=== PATIENT | female | born 1975 | race Caucasian/White ===

== ENCOUNTER → 2017-08-16 12:35 | Outpatient (CLI) | payer OTHER, SELFPAY ==
--- NOTE | 2017-08-16 | DI.MG.S_ITS ---
BILATERAL DIGITAL DIAGNOSTIC MAMMOGRAM 3D/2D SHORT-TERM FOLLOW-UP: 08/16/2017 CLINICAL: Short term follow up right breast. Due bilaterally. Comparison is made to exams dated: 08/10/2016 mammogram, 03/01/2016 mammogram, and 02/03/2016 mammogram - [facility]. There are scattered fibroglandular elements in both breasts. There is a 0.4 cm oval equal density asymmetry with an indistinct margin in the right breast at 11 o'clock middle depth. This is not significantly changed. No other significant masses, calcifications, or other findings are seen in either breast. IMPRESSION: INCOMPLETE: NEEDS ADDITIONAL IMAGING EVALUATION The 0.4 cm oval equal density asymmetry in the right breast is indeterminate. An ultrasound is recommended. This exam was interpreted at Station ID: [id number]. NOTE: For mammograms, a report in lay terms will be sent to the patient. Approximately 15% of breast malignancies will not be visualized mammographically. In the management of a palpable breast mass, a negative mammogram must not discourage biopsy of a clinically suspicious lesion. Electronically Signed By: Felipe arreola/jono:08/16/2017 13:55:50 letter sent: Need Ultrasound ACR BI-RADS Category 0: Incomplete [id number]
--- NOTE | 2017-08-16 | DI.US.S_ITS ---
ULTRASOUND OF RIGHT BREAST: 08/16/2017 CLINICAL: 6 month follow-up of cysts. Comparison is made to exams dated: 08/16/2017 mammogram, 08/10/2016 ultrasound, and 08/10/2016 mammogram - [facility]. Color flow and real-time ultrasound of the right breast were performed on the areas of interest. There is a stable benign 0.4 cm x 0.3 cm x 0.6 cm oval cyst with debris with a smooth internal wall in the right breast at 10 o'clock middle depth. This oval cyst with debris is hypoechoic with posterior acoustic enhancement. Color flow imaging demonstrates that there is no vascularity present. IMPRESSION: BENIGN There is no sonographic evidence of malignancy. The stable 0.4 cm x 0.3 cm x 0.6 cm oval cyst with debris in the right breast is consistent with a complex cyst and is benign. Return to annual mammogram screening schedule is recommended. This exam was interpreted at Station ID: [id number]. Electronically Signed By: Felipe arreola/jono:08/16/2017 15:50:31 letter sent: Normal Exam Ultrasound BI-RADS: 2 Benign
== END ==
PROVIDERS: Visit Provider Nurse Practitioner Adult Health
DX: R92.8 Other abnormal and inconclusive findings on diagnostic imaging of breast (principal); N63.10 Unspecified lump in the right breast, unspecified quadrant
CPT/HCPCS: 76642; 77066; G0279

== ENCOUNTER 2017-09-18 17:19 | Emergency (ER) | payer OTHER, SELFPAY ==
[2017-09-18 18:08] VITALS: BP 135/85; PULSE 84; RESP 18; TEMP 37.1; O2SAT 100; BMI 25.6
[2017-09-18 20:12] LABS: RBC Urine None Seen (0-5/HPF)
[2017-09-18 20:59] LABS: Bacteria Urine Many (>30); Culture Indicated Urine Specimen Cultured; Squamous Epithelial Cell Urine 0-1 /HPF; WBC Urine >100/HPF (0-5/HPF)
--- NOTE | 2017-09-18 21:10 | DI.CT.S_ITS ---
PROCEDURE: CT KIDNEY URETER BLADDER (KUB) INDICATIONS: left flank pain for 3 days TECHNIQUE: Noncontrast 5 mm thick sections acquired from the diaphragms to the symphysis. 5 mm thick coronal and sagittal reformats were then performed. For radiation dose reduction, the following was used: automated exposure control, adjustment of mA and/or kV according to patient size. COMPARISON: None. FINDINGS: Image quality: Excellent. Lung bases: There is minimal dependent atelectasis. Heart size is normal. Urinary system: There is mild asymmetric enlargement of the left kidney with mild perinephric stranding bilaterally, left. The right. There is slight dilatation of the left renal collecting system with mild urothelial thickening without definite hydronephrosis. No renal or ureteral stone identified. No perinephric fluid collections. There is asymmetric fat stranding within the left perinephric space. The urinary bladder is normal wall thickness. No bladder stones. Other solid organs: Liver is normal in size. Gallbladder appears within normal limits without calcified gallstones. Pancreas is normal in contours. Spleen is normal in size. No adrenal nodules. Peritoneum and bowel: Unenhanced bowel loops demonstrate normal wall thickness and caliber. The appendix is normal in appearance. There is mild diverticulosis without acute diverticulitis. No free fluid or air. Nodes and vessels: No retroperitoneal or mesenteric adenopathy by size criteria. Aorta and inferior vena cava are normal in caliber. Abdominal wall: No ventral hernias. Pelvis: No free pelvic fluid. No inguinal hernias or adenopathy. Bones: No suspicious bony lesions. No vertebral body compression fractures. IMPRESSION: 1. Asymmetric edema and perinephric stranding around the left kidney with mild fullness of the renal collecting system and mild urothelial thickening. The findings are suggestive of pyelonephritis, with evaluation limited by the absence of intravenous contrast. No perinephric fluid collections to suggest an abscess. No obstructive uropathy. 2. Mild nonspecific right stranding also noted. Right pyelonephritis is not excluded. 3. No evidence of acute appendicitis. 4. Diverticulosis without acute diverticulitis. Dictated by: Felipe Starks M.D. on 09/18/2017 at 21:54 Approved by: Felipe Starks M.D. on 09/18/2017 at 21:59
[2017-09-18 21:43] LABS: Add Manual Diff / Slide Review NO; Basophils Percent Auto 0.2 % (0-2); Eosinophils Percent Auto 0.5 % (2-4); Hematocrit 37.4 % (36-46); Hemoglobin 12.5 g/dL (12.0-16.0); Lymphocytes Percent Auto 7.8 % (25-40); Mean Corpuscular HGB Conc 33.3 % (30-36); Mean Corpuscular Volume 93.2 fL (80-100); Monocytes Percent Auto 5.9 % (3-14); Neutrophils Absolute Auto 20000 /uL (3000-5900); Neutrophils Percent Auto 85.6 % (50-75); Platelet Count 333 X10^3/uL (150-400); Red Blood Cell Count 4.02 X10^6/uL (4.0-5.2); Red Cell Distribution Width 13.4 % (11.6-14.8); White Blood Cell Count 23.3 X10^3/uL (4.5-11.0)
[2017-09-18 21:55] LABS: Alanine Aminotransferase 58 IU/L (9-52); Albumin 3.9 g/dL (3.5-5.0); Alkaline Phosphatase 336 U/L (38-126); Aspartate Aminotransferase 30 IU/L (14-36); BUN Creatinine Ratio 14.4 (6-22); Blood Urea Nitrogen 23 mg/dL (7-17); Calcium 10.1 mg/dL (8.4-10.2); Carbon Dioxide 27 mmol/L (22-32); Chloride 100 mmol/L (98-107); Estimated Glomerular Filt Rate 35.3 mL/min (>60); Globulin 3.8 g/dL (1.7-4.1); Glucose 105 mg/dL (70-100); HEMOLYSIS < 15 (0-50); Lipase 11 U/L (23-300); Potassium 4.5 mmol/L (3.4-5.1); Sodium 140 mmol/L (137-145); Total Protein 7.7 g/dL (6.3-8.2)
[2017-09-18] MEDS: SODIUM CHLORIDE 0.9% 1,000 ML 1000 ML IV ×2 (22:04→23:01)
[2017-09-18] MEDS: CEFTRIAXONE 1 GM/50 ML FROZ.PIGGY IV (22:22)
[2017-09-18] MEDS: KETOROLAC 60 MG/2 ML VIAL 30 MG IV (22:44)
[2017-09-18 23:07] VITALS: BP 123/71; PULSE 90; RESP 15; O2SAT 100
--- NOTE | 2017-09-18 23:32 | PC.NURSE ---
Pt states pain has not improved. It is noted that pt is no longer guarding or holding left side as she was prior to pain medication. Using smartphone and requesting cranberry juice.
--- NOTE | 2017-09-18 23:47 | ED_ITS ---
HPI - Female Genitourinary General Chief complaint: Urogenital-Female Stated complaint: DARK URINE,LOWER BACK PAIN,NAUSEA Time Seen by Provider: 09/18/17 20:55 Source: patient Mode of arrival: ambulatory Limitations: no limitations History of Present Illness HPI Narrative: patient is a 41-year-old female who presents with left flank pain ongoing for the last 3 days. It is constantly there and sometimes gets worse. Pain is nonradiating. She occasionally gets nauseous but no vomiting. She has not noted any fever. There were a couple of episodes 2 days ago when she felt lightheaded and thought that she might pass out she did not pass out at any time. She had no chest pain heart palpitations. She denies any painful or frequent urination. MD Complaint: other ( Left flank pain) Onset (ago): day(s) (4) Related Data Home Medications Medication Instructions Recorded Confirmed diclofenac sodium 100 mg PO BID #0 10/18/15 09/18/17 gabapentin [Neurontin] 1,200 mg OR TID #0 10/18/15 09/18/17 trazodone 50 mg PO ONCE PM PRN #0 10/18/15 09/18/17 propranolol 80 mg PO DIRECTED 09/18/17 09/18/17 Previous Rx's Medication Instructions Recorded ciprofloxacin HCl [Cipro] 500 mg PO BID #14 tab 09/18/17 ciprofloxacin HCl [Cipro] 500 mg PO BID #14 tab 09/18/17 Allergies Allergy/AdvReac Type Severity Reaction Status Date / Time bacitracin Allergy Unknown Verified 09/18/17 18:14 [From NEOSPORIN ([id number])] neomycin Allergy Unknown Verified 09/18/17 18:14 [From NEOSPORIN ([id number])] polymyxin B Allergy Unknown Verified 09/18/17 18:14 [From NEOSPORIN ([id number])] Sulfa (Sulfonamide Allergy Unknown Verified 09/18/17 18:14 Antibiotics) [SULFA (SULFONAMIDE ANTIBIOTICS)] Review of Systems Review of Systems All systems reviewed & are unremarkable except as noted in HPI and below Constitutional Reports chills, Reports fatigue, Reports fever(s) and Reports poor appetite Cardiovascular Denies chest pain, Denies rapid heart rate, Reports lightheadedness, Denies dyspnea and Denies dyspnea on exertion Respiratory Denies cough, Denies dyspnea, Denies dyspnea on exertion and Denies wheezing Gastrointestinal Gastrointestinal: Denies abdominal pain, Denies change in bowel habits, Denies diarrhea, Denies nausea and Denies vomiting Genitourinary Reports as per HPI Musculoskeletal Denies back pain, Denies muscle weakness, Denies numbness and Denies tingling Integumentary/Breasts Denies pruritus, Denies erythema, Denies rash and Denies wounds Neurologic Denies numbness and Denies tingling Endocrine Reports fatigue Allergic/Immunologic Denies wheezing PFSH Medical History Migraine (Acute) Social History Smoking Status: Never smoker alcohol intake: never substance use type: does not use Exam Initial Vital Signs Initial Vital Signs: Vital Signs Temperature 98.8 F 09/18/17 18:08 Pulse Rate 84 09/18/17 18:08 Respiratory Rate 18 09/18/17 18:08 Blood Pressure 135/85 H 09/18/17 18:08 Pulse Oximetry 100 09/18/17 18:08 GENERAL: well-appearing alert and oriented times 3 HEENT: Head atraumatic,EOMI, pupils reactive, neck is supple no meningeal sign CARDIOVASCULAR: Regular rate and rhythm without murmurs, rubs or gallops. RESPIRATORY: Breath sounds equal bilaterally, no wheezes rales or rhonchi. ABDOMEN: Soft, nontender. Normoactive bowel sounds all 4 quadrants. No guarding or rebound. no suprapubic : left CVA tenderness no guarding no rebound mild right CVA tenderness but more pronounced on the left EXTREMITIES: Normal range of motion, no clubbing or edema. Neurovascularly intact NEUROLOGICAL: Alert and oriented x4.Normal gait and speech. Cranial nerves II through XII grossly intact. SKIN: Warm, dry, no laceration, no petechiae, no rashes or lesions. Course Orders Ordered: ED Orders 09/18/17 18:15 Urine Culture Stat Urine Microscopic Stat 09/18/17 21:10 CT kidney ureter bladder (KUB) Stat 09/18/17 21:30 Complete Blood Count AUTO DIFF Stat Comprehensive Metabolic Panel Stat Lipase Stat Discontinued Medications Sodium Chloride (Normal Saline 0.9%) 1,000 mls @ 1,000 mls/hr IV CONT SLIM Last Infusion: 09/18/17 23:22 Dose: 0 mls/hr Admin: 09/18/17 22:04 Dose: 1,000 mls/hr Ceftriaxone Sodium/Dextrose (Rocephin) 1 gm in 50 mls @ 100 mls/hr IV NOW ONE Stop: 09/18/17 22:35 Last Infusion: 09/18/17 23:01 Dose: 0 mls/hr Admin: 09/18/17 22:22 Dose: 100 mls/hr Sodium Chloride (Normal Saline 0.9%) 1,000 mls @ 1,000 mls/hr IV BOLUS ONE Stop: 09/18/17 23:25 Last Infusion: 09/18/17 23:58 Dose: 0 mls/hr Admin: 09/18/17 23:01 Dose: 1,000 mls/hr Ketorolac Tromethamine (Toradol) 30 mg IV NOW ONE Stop: 09/18/17 22:31 Last Admin: 09/18/17 22:44 Dose: 30 mg Vital Signs - 8 hr 09/18/17 23:07 Pulse Rate 90 Respiratory Rate 15 Blood Pressure [Left Arm] 123/71 H Pulse Oximetry 100 MDM - Female Genitourinary Lab Data Attestation: I reviewed the patient's lab results. Result diagrams: 09/18/17 21:30 09/18/17 21:30 Lab Results 09/18/17 09/18/17 09/18/17 Range/Units 18:15 21:30 21:30 WBC 23.3 H (4.5-11.0) X10^3/uL RBC 4.02 (4.0-5.2) X10^6/uL Hgb 12.5 (12.0-16.0) g/dL Hct 37.4 (36-46) % MCV 93.2 (80-100) fL MCH 31.0 (26-34) PG MCHC 33.3 (30-36) % RDW 13.4 (11.6-14.8) % Plt Count 333 (150-400) X10^3/uL Neut % (Auto) 85.6 H (50-75) % Lymph % (Auto) 7.8 L (25-40) % [place] % (Auto) 5.9 (3-14) % Eos % (Auto) 0.5 L (2-4) % Baso % (Auto) 0.2 (0-2) % Neut # (Auto) 41100 H (4233-0722) /uL Sodium 140 (137-145) mmol/L Potassium 4.5 (3.4-5.1) mmol/L Chloride 100 (98-107) mmol/L Carbon Dioxide 27 (22-32) mmol/L BUN 23 H (7-17) mg/dL Creatinine 1.60 H (0.52-1.04) mg/dL Estimated GFR 35.3 L (>60) mL/min BUN/Creatinine Ratio 14.4 (6-22) Glucose 105 H (70-100) mg/dL Calcium 10.1 (8.4-10.2) mg/dL Total Bilirubin 1.0 (0.2-1.3) mg/dL AST 30 (14-36) IU/L ALT 58 H (9-52) IU/L Alkaline Phosphatase 336 H (38-126) U/L Total Protein 7.7 (6.3-8.2) g/dL Albumin 3.9 (3.5-5.0) g/dL Globulin 3.8 (1.7-4.1) g/dL Albumin/Globulin Ratio 1.0 (1.0-2.8) Lipase 11 L (23-300) U/L Urine RBC None seen (0-5/HPF) Urine WBC >100/hpf H (0-5/HPF) Ur Squamous Epith Cells 0-1 /hpf Urine Bacteria Many (>30) H (None) Ur Culture Indicated? Specimen cultured Micro UA Comment Not Reportable Imaging Data CT scan - abdomen: Radiologist's impression: PROCEDURE: CT KIDNEY URETER BLADDER (KUB) INDICATIONS: left flank pain for 3 days TECHNIQUE: Noncontrast 5 mm thick sections acquired from the diaphragms to the symphysis. 5 mm thick coronal and sagittal reformats were then performed. For radiation dose reduction, the following was used: automated exposure control, adjustment of mA and/or kV according to patient size. COMPARISON: None. FINDINGS: Image quality: Excellent. Lung bases: There is minimal dependent atelectasis. Heart size is normal. Urinary system: There is mild asymmetric enlargement of the left kidney with mild perinephric stranding bilaterally, left. The right. There is slight dilatation of the left renal collecting system with mild urothelial thickening without definite hydronephrosis. No renal or ureteral stone identified. No perinephric fluid collections. There is asymmetric fat stranding within the left perinephric space. The urinary bladder is normal wall thickness. No bladder stones. Other solid organs: Liver is normal in size. Gallbladder appears within normal limits without calcified gallstones. Pancreas is normal in contours. Spleen is normal in size. No adrenal nodules. Peritoneum and bowel: Unenhanced bowel loops demonstrate normal wall thickness and caliber. The appendix is normal in appearance. There is mild diverticulosis without acute diverticulitis. No free fluid or air. Nodes and vessels: No retroperitoneal or mesenteric adenopathy by size criteria. Aorta and inferior vena cava are normal in caliber. Abdominal wall: No ventral hernias. Pelvis: No free pelvic fluid. No inguinal hernias or adenopathy. Bones: No suspicious bony lesions. No vertebral body compression fractures. IMPRESSION: 1. Asymmetric edema and perinephric stranding around the left kidney with mild fullness of the renal collecting system and mild urothelial thickening. The findings are suggestive of pyelonephritis, with evaluation limited by the absence of intravenous contrast. No perinephric fluid collections to suggest an abscess. No obstructive uropathy. 2. Mild nonspecific right stranding also noted. Right pyelonephritis is not excluded. 3. No evidence of acute appendicitis. 4. Diverticulosis without acute diverticulitis. Dictated by: Felipe Starks M.D. on 09/18/2017 at 21:54 MDM Narrative Medical decision making narrative: patient does not appear toxic. She is not hypotensive or tachycardic I do not suspect severe sepsis. She is given dose of IV antibiotics she is now eating food brought in by her . This is clinically pyelonephritis. Her urine also shows infection. I discussed all findings with the patient And spouse, Education has been performed regarding treatment plan, diagnosis, warning signs and symptoms and all concerns have been addressed. Verbally agree with and understood all of the above. Discharge Plan Departure Patient Disposition: Home, Self-Care Clinical Impression: Urinary tract infection Discharge Date/Time: 09/18/17 23:59 Interventions: ED Discharge Assessment Last Done: 09/18/17 23:58 Instructions: DI for Kidney Infection Activity Restrictions/Additional Instructions: *You have been diagnosed with kidney infection *What to do: start antibiotics tomorrow, increase fluids, fever control Tylenol and/or ibuprofen *Continue to take medications as directed At your request you're medications have been faxed to [facility] in [place] and [facility] in [facility] *Follow up with your primary care provider in 2-3 days *Return to ER if you should have inability to take antibiotics, worsening pain , any new, worsening or concerning symptoms Prescriptions: New ciprofloxacin HCl [Cipro] 500 mg tablet 500 mg PO BID Qty: 14 RF: 0 ciprofloxacin HCl [Cipro] 500 mg tablet 500 mg PO BID Qty: 14 RF: 0 No Action trazodone 50 MG tablet 50 mg PO ONCE PM PRN (Reason: Sleep) Qty: 0 RF: 0 gabapentin [Neurontin] 400 MG capsule 1,200 mg OR TID Qty: 0 RF: 0 diclofenac sodium 100 MG tablet extended release 24 hr 100 mg PO BID Qty: 0 RF: 0 propranolol 80 mg Tablet 80 mg PO DIRECTED RF: 0
== END 2017-09-18 23:59 | disposition home or self-care (01) ==
PROVIDERS: Nurse Practitioner Family; Emergency Provider Emergency Medicine
DX: N39.0 Urinary tract infection, site not specified (principal)
CPT/HCPCS: 36591; 74176; 80053; 81003; 81015; 81025; 83690; 85025; 87077; 87086; 87186; 96361; 96365; 96375; 99283; 99284; J1885